=== PATIENT | male | born 1950 | race Caucasian/White ===

== ENCOUNTER → 2019-08-31 | Day surgery (SDC) | payer BC ==
[2019-08-30 16:11] LABS: BASOPHILS % 0.5 % (0.0-1.0); EOSINOPHILS # (AUTO) 0.4 (0.0-0.4); EOSINOPHILS % 4.5 % (0.0-6.0); HEMATOCRIT 38.1 % (38.2-49.6); HEMOGLOBIN 12.7 g/dL (14.0-18.0); LYMPHOCYTES % 25.7 % (18.0-39.1); MEAN CORPUSCULAR HEMOGLOBIN 29.9 pg (28-32); MEAN CORPUSCULAR HGB CONC 33.3 g/dL (31-35); MEAN CORPUSCULAR VOLUME 89.6 fL (81-99); MONOCYTES # (AUTO) 0.7 (0.2-0.8); MONOCYTES % 8.7 % (4.4-11.3); NEUTROPHILS # (AUTO) 4.6 (2.1-6.9); PLATELET COUNT 294 x10e3/uL (140-360); RED BLOOD COUNT 4.25 x10e6/uL (4.3-5.7); RED CELL DISTRIBUTION WIDTH 12.9 % (11.7-14.4)
--- NOTE | 2019-08-30 16:26 | Diagnostic Imaging Report ---
EXAMINATION: CHEST 2 VIEWS INDICATION: Pre-operative COMPARISON: None FINDINGS: LINES/TUBES:None LUNGS:The lungs are well-inflated. No focal consolidation or pulmonary edema. PLEURA:No pleural effusion or pneumothorax. MEDIASTINUM:The cardiomediastinal silhouette appears normal in size and shape. BONES/SOFT TISSUES:No acute osseous injury. ABDOMEN:No free air under the diaphragm. IMPRESSION: No focal pneumonia or pulmonary edema. Signed by: Demetria Russell MD on 08/30/2019 4:24 PM
[2019-08-30 16:28] LABS: BLOOD UREA NITROGEN 19 mg/dL (7-26); BUN/CREATININE RATIO 18 (6-25); CALCIUM 9.7 mg/dL (8.4-10.2); CARBON DIOXIDE 25 mmol/L (22-29); CHLORIDE 101 mmol/L (98-107); CREATININE, SERUM 1.03 mg/dL (0.72-1.25); EST GLOMERULAR FILTRATION RATE > 60 ML/MIN (60-); GLUCOSE 191 mg/dL (74-118); SODIUM 137 mmol/L (136-145)
[~2019-08-31] MED LIST: AMITRIPTYLINE H25 MG PO; AMLODIPINE-BEN1 EAC4 PO; ASPIRIN325 MG PO; BACITRACIN 50,000 UNIT VIAL ONE; BACTRIM DS TAB1 EACH PO; BUPIVACAINE HCL 0.5% INJ 30 ML VIAL INJ ONE; CLEOCIN HCL150 MG PO; CLINDAMYCIN 600MG / 50ML 50 ML IV ONE; CRESTOR10 MG PO; DEXAMETHASONE SOD PHOS INJ 4 MG/ML VIAL ONE; FENTANYL CITRATE/PF 100MCG/2 ML INJ ONE; FLOMAX0.4 MG PO; KETOROLAC TROMETHAMINE 30 MG/ML VIAL ONE; LIDOCAINE HCL 2% LOCAL INJ 5 ML SDV VIAL INJ ONE; METFORMIN HCL500 M2 PO; MIDAZOLAM HCL 2 MG/2 ML VIAL ONE; MUPIROCIN 2% OINT 22 GM TUBE ONE; NEURONTIN300 MG PO; NOVOLOG100 UNITS1 SC; OMEPRAZOLE40 MG PO; ONDANSETRON HCL INJ 2MG/ML 2ML 2 MG/ML VIAL ONE; PROPOFOL IV EMULSION 10 MG/ML 20 ML VIAL ONE; SEVOFLURANE INHAL SOLN 250 ML PEN BTL ONE; TRAZODONE HCL50 MG PO; TRESIBA FL200 UNIT/1 SC; TRULICITY1.5 MG/0.5 SC
--- OUTSIDE RECORDS SUMMARY | 2019-08-31 06:09 | XMS REPORT ---
Author Author [facility] Address Unknown Phone Unavailable Care Team Providers Care Data Warehousing Engineer Name Role Phone JUDY STINSON Unavailable Unavailable Problems This patient has no known problems. Allergies, Adverse Reactions, Alerts This patient has no known allergies or adverse reactions. Medications This patient has no known medications. Results Test Description Test Time Test Comments Text Results Atomic Results Result Comments CHEST 2 VIEWS 2019-08-30 16:23:00 [place] [address] Patient Name: CYNDIE PASOTR MR #: [id number] : 1950 Age/Sex: 69/M Req #: [id number] Adm Physician: Ordered by: JUDY STINSON MD Report #: [id number] Location: OR Room/Bed: Procedure: [id number] DX/CHEST 2 VIEWS Exam Date: Exam Time: REPORT STATUS: Signed EXAMINATION: CHEST 2 VIEWS INDICATION: Pre-operative COMPARISON: None FINDINGS: LINES/TUBES:None LUNGS:The lungs are well- inflated. No focal consolidation or pulmonary edema. PLEURA:No pleural effusion or pneumothorax. MEDIASTINUM:The cardiomediastinal silhouette appears normal in size and shape. BONES/SOFT TISSUES:No acute osseous injury. ABDOMEN:No free air under the diaphragm. IMPRESSION: No focal pneumonia or pulmonary edema. Signed by: Maurice Jackson MD on 08/30/2019 4:24 PM Dictated By: MAURICE JACKSON MD 23 Transcribed By: SHANTE on 08/30/191623 COPY TO: JUDY STINSON MD
--- NOTE | 2019-08-31 07:05 | NUR ---
SPIRITUAL CARE - Pre-Surgery Assessment: Pt in bed. Pt's at bedside. Pt identified as Sikh. Pt reported supportive attention from family and friends. Intervention: I provided pastoral presence, hospitality, and sympathetic listening. I acquainted pt with availability of pre fabricator while hospitalized. Outcome: Pt expressed appreciation for visit. No need for follow up indicated at this time. KANG Raelain Spiritual Care Department O: [phone] Pager: [phone] ([phone] number calling from)
[2019-08-31 09:45] VITALS: BP 121/68
--- NOTE | 2019-08-31 15:53 | Operative Report ---
DATE OF PROCEDURE: 08/31/2019 SURGEON: Jonathan Juárez MD PREOPERATIVE DIAGNOSIS: Laceration, left index finger extensor tendon. POSTOPERATIVE DIAGNOSES: 1. Laceration, left index finger extensor tendon central slip. 2. Septic arthritis, left index finger PIP joint. PROCEDURES: 1. Exploration of penetrating injury, left index finger. 2. Arthrotomy and synovectomy of left index finger PIP joint. 3. Repair of extensor tendon central slip. ANESTHESIA: General. HISTORY: The patient is a 69-year-old right-hand dominant male, who approximately one week ago sustained an injury secondary to a grinder watch parts along the dorsal aspect of the index PIP joint. Within several days, the finger became infected and the patient was being treated by nurse practitioners with a variety of antibiotics. The patient was seen in the office and it was felt that there was significant injury to the extensor tendon mechanism and probable underlying infection. The risks, benefits, and alternatives of treatment were discussed with the patient. He is prepared to undergo the procedure as outlined. PROCEDURE IN DETAIL: The patient was marked preoperatively in the holding area. He was brought to the operating theater and after the induction of adequate general anesthesia, he was prepped and draped in a supine position and a time-out was performed. The left upper extremity was elevated for 3 to 4 minutes and then the tourniquet was inflated to a pressure of 250 mmHg. A curvilinear incision was marked out about the dorsal aspect of the PIP joint, incorporating the original wound. The incision was made through the skin and subcutaneous tissues and immediately upon entering the subcutaneous space, purulent exudate was encountered and this was cultured both aerobically and anaerobically. At this point, the skin flaps were elevated off the extensor tendon mechanism and it was clear that there was obvious disruption of the extensor mechanism directly over the PIP joint with extrusion of inflamed synovium. At this point, an arthrotomy was done and the inflammatory synovium was radically excised. Inspection of the joint was then done and then copious irrigation with antibiotic containing solution until the effluent was clear, approximately 2-300 mL was used. At this point, the edges of the extensor tendon mechanism are debrided of devitalized tissue and then the extensor tendon mechanism was repaired using 4-0 Vicryl in an interrupted [id number] fashion. The wound was irrigated once again and the skin was approximated with 5-0 nylon in an interrupted horizontal mattress fashion. A Marcaine field block was performed at the base of the index finger. The tourniquet was deflated, all the fingers pinked up nicely, and the wound was noted to be hemostatic. Bactroban ointment, Xeroform gauze, and a sterile dressing are applied and then a foam aluminum splint to maintain the PIP joint in extension was fashioned and held in place with loosely wrapped Coban. The patient tolerated the procedure well and was brought to recovery room in satisfactory condition and discharged with a postoperative instruction sheet as well as a followup appointment. MD RIANA Chowdhury/CYNTHIA /[id number]
== END | disposition home or self-care (01) ==
LOC: OR 06:02 → EDSTATUS 08:00
PROVIDERS: ATTEND Plastic Surgery
DX: S66.321A Laceration of extensor muscle, fascia and tendon of left index finger at wrist and hand level, initial encounter (principal); M00.9 Pyogenic arthritis, unspecified; G47.33 Obstructive sleep apnea (adult) (pediatric); I10 Essential (primary) hypertension; E11.9 Type 2 diabetes mellitus without complications; K21.9 Gastro-esophageal reflux disease without esophagitis; W31.89XA Contact with other specified machinery, initial encounter; Z88.0 Allergy status to penicillin; Z01.810 Encounter for preprocedural cardiovascular examination; Z01.812 Encounter for preprocedural laboratory examination; Z01.818 Encounter for other preprocedural examination; Z79.84 Long term (current) use of oral hypoglycemic drugs; Z79.82 Long term (current) use of aspirin; Z79.4 Long term (current) use of insulin
CPT/HCPCS: 26140; 26426; 36415 ×2; 71046; 80048; 82948; 85025; 87071; 87075; 87205; 93005; J1100; J1885; J2001; J2250; J2405; J2704; J3010